=== PATIENT | female | born 1950 | race American Indian/Alaskan Native ===

== ENCOUNTER 2016-12-10 22:37 | Emergency (ER) | payer MEDICARE ==
[2016-12-10] MEDS ORDERED: UNASYN/NS 3 GM/100 ML 3 GM/100 ML BAG IV ONE (23:21)
--- NOTE | 2016-12-10 23:22 | Emergency Department Report ---
<CHENG MCKEE I. - Last Filed: 12/10/16 23:43> ED ENT HPI - General Chief complaint: Dental/Oral Stated complaint: FACIAL SWELLING/PAIN/BRUISING Time Seen by Provider: 12/10/16 23:21 Source: patient, family Mode of arrival: Wheelchair Limitations: No Limitations - History of Present Illness Initial comments: Patient is a 66-year-old female with no past medical history presenting with left facial pain and swelling status post a dental procedure 4 days prior. Associated chills today. Patient reports she woke up today with some minor swelling but over the course of the day the swelling has increased with pain tenderness and mild redness along the left side of her face. As per the daughter at the bedside 4 days ago patient had molding done of her gums 4 implants and there was complication the molding and they had to scrape the molding off. She likely had gingival trauma status post molding. Otherwise no fevers, nausea, vomiting, shortness of breath, neck pain, chest pain, abdominal pain, sick contacts. MD complaint: tooth pain, other (Left sided facial pain and swelling) -: Gradual (over today) Severity: moderate Severity scale (0 -10): 8 Quality: aching, constant Consistency: constant Improves with: none Worsens with: movement Context- Dental: history of dental caries, trauma, poor dental care - Related Data Home Medications Medication Instructions Recorded Confirmed Last Taken oxyCODONE /ACETAMINOPHEN [Percocet 1 tab PO BID PRN 12/11/16 12/11/16 Unknown 5/325] Previous Rx's Medication Instructions Recorded Last Taken Type Amoxicillin/K Clav Tab [Augmentin 1 tab PO Q12HR #14 tab 12/11/16 Unknown Rx 875 mg] Allergies Allergy/AdvReac Type Severity Reaction Status Date / Time No Known Allergies Allergy Unverified 12/10/16 23:18 ED Dental HPI - General Chief complaint: Dental/Oral Stated complaint: FACIAL SWELLING/PAIN/BRUISING Time Seen by Provider: 12/10/16 23:21 Source: patient, family Mode of arrival: Wheelchair Limitations: No Limitations - History of Present Illness MD complaint: tooth pain, other (left sided facial swelling and pain) Severity: moderate Quality: aching, constant - Related Data Home Medications Medication Instructions Recorded Confirmed Last Taken oxyCODONE /ACETAMINOPHEN [Percocet 1 tab PO BID PRN 12/11/16 12/11/16 Unknown 5/325] Previous Rx's Medication Instructions Recorded Last Taken Type Amoxicillin/K Clav Tab [Augmentin 1 tab PO Q12HR #14 tab 12/11/16 Unknown Rx 875 mg] Allergies Allergy/AdvReac Type Severity Reaction Status Date / Time No Known Allergies Allergy Unverified 12/10/16 23:18 ED Review of Systems ROS: Stated complaint: FACIAL SWELLING/PAIN/BRUISING Other details as noted in HPI Comment: All other systems reviewed and negative ED Past Medical Hx - Past Medical History Previous Medical History?: No Additional medical history: spinal surgery - Surgical History Past Surgical History?: Yes Additional Surgical History: spinal surgery - Social History Smoking Status: Never Smoker Substance Use Type: None - Medications Home Medications: Home Medications Medication Instructions Recorded Confirmed Last Taken Type Amoxicillin/K Clav Tab [Augmentin 1 tab PO Q12HR #14 tab 12/11/16 Unknown Rx 875 mg] oxyCODONE /ACETAMINOPHEN [Percocet 1 tab PO BID PRN 12/11/16 12/11/16 Unknown History 5/325] ED Physical Exam - General Limitations: No Limitations General appearance: alert, in distress (mild painful distress) - Head Head exam: Present: normocephalic, other (moderate left sided facial swelling, facial tenderness, mild erythema over the L cheek) - Eye Eye exam: Present: normal appearance - ENT ENT exam: Present: mucous membranes moist, other (Mulitiple missing teeth, dental caries, mild gingival tenderness to percussion of the left upper and lower gum line. no draining abscess seen. Mild trismus) - Neck Neck exam: Present: normal inspection ED Course Vital Signs 12/10/16 12/10/16 12/10/16 23:06 23:35 23:40 Temperature 99.3 F Pulse Rate 73 Respiratory 18 Rate Blood Pressure 182/90 149/88 209/102 Blood Pressure [Left] O2 Sat by Pulse 100 100 Oximetry 12/10/16 12/11/16 12/11/16 23:50 00:04 00:08 Temperature Pulse Rate Respiratory Rate Blood Pressure 209/102 184/85 184/85 Blood Pressure [Left] O2 Sat by Pulse 98 98 97 Oximetry 12/11/16 12/11/16 12/11/16 00:10 00:12 00:20 Temperature 98.2 F Pulse Rate 78 Respiratory 14 14 Rate Blood Pressure 184/85 185/77 Blood Pressure 165/85 [Left] O2 Sat by Pulse 99 98 99 Oximetry 12/11/16 12/11/16 12/11/16 00:30 00:40 00:50 Temperature Pulse Rate Respiratory Rate Blood Pressure 175/73 149/88 163/68 Blood Pressure [Left] O2 Sat by Pulse 94 99 94 Oximetry 12/11/16 12/11/16 12/11/16 01:00 01:10 01:20 Temperature Pulse Rate Respiratory Rate Blood Pressure 164/77 164/77 182/72 Blood Pressure [Left] O2 Sat by Pulse 96 98 96 Oximetry 12/11/16 12/11/16 12/11/16 01:30 02:33 03:22 Temperature 98.5 F Pulse Rate Respiratory Rate Blood Pressure 158/71 158/71 Blood Pressure [Left] O2 Sat by Pulse 96 98 Oximetry 12/11/16 12/11/16 12/11/16 03:30 03:40 03:50 Temperature Pulse Rate Respiratory Rate Blood Pressure 188/75 158/71 177/80 Blood Pressure [Left] O2 Sat by Pulse 95 96 99 Oximetry 12/11/16 04:04 Temperature 98.5 F Pulse Rate 82 Respiratory Rate Blood Pressure Blood Pressure [Left] O2 Sat by Pulse Oximetry ED Medical Decision Making - Medical Decision Making Concern for dental abscess and cellulitis. Ordered unasyn 3gm IVPB and morphine 4mg IVP for pain control Critical care attestation.: If time is entered above; I have spent that time in minutes in the direct care of this critically ill patient, excluding procedure time. ED Disposition Clinical Impression: Facial cellulitis Disposition: DISCHARGED TO HOME OR SELFCARE Condition: Stable Additional Instructions: Next dose of antibiotics is due around 8 or 9:00 in the morning. Take your Percocet as needed for pain. Use ice as tolerated to help reduce the swelling. Please return if you have worsening redness of the face or fever or intolerance to oral intake. Drink plenty of fluids. Stay well hydrated. Prescriptions: Amoxicillin/K Clav Tab [Augmentin 875 mg] 1 tab PO Q12HR #14 tab Referrals: PRIMARY CARE, [Primary Care Provider] - 3-5 Days <ANDRZEJ RAY - Last Filed: 12/11/16 07:07> ED Course - Reevaluation(s) Reevaluation #1: 12/11/16 07:05 CT scan did demonstrate a left-sided facial edema but no abscess formation noted otherwise unremarkable CT. I did inform the patient of the findings. Lab results were reviewed as well. Patient subjectively does have moderate amount of tenderness. I did give her another dose of pain medication to help with this. I do feel that she is safe for home. I feel that there is a combination of infection as well as inflammatory component with this. I did encourage ice at home. I did also encourage her to continue with antibiotics. she is informed that she can return to the ED tomorrow if there is any concerns whatsoever. These include increased redness fever, pain, drainage. SHe will be with her daughter at home. ED Medical Decision Making - Lab Data Result diagrams: 12/10/16 23:50 12/10/16 23:50 ED Disposition Is pt being admited?: No Does the pt Need Aspirin: No Time of Disposition: 03:40
[2016-12-10] MEDS ORDERED: MORPHINE IV ONE (23:43)
[2016-12-11 00:29] LABS: Basophils % (Auto) 0.4 % (0.0-1.8); Eosinophils % (Auto) 0.6 % (0.0-4.3); Hematocrit 39.3 % (30.3-42.9); Hemoglobin 12.8 gm/dl (10.1-14.3); Mean Corpuscular HGB Conc 33 % (30-34); Mean Corpuscular Hemoglobin 28 pg (28-32); Mean Corpuscular Volume 86 fl (79-97); Platelet Count 236 K/mm3 (140-440); Red Cell Distribution Width 14.8 % (13.2-15.2); White Blood Count 15.9 K/mm3 (4.5-11.0)
[2016-12-11 00:39] LABS: Blood Urea Nitrogen 14 mg/dL (7-17); Calcium 9.6 mg/dL (8.4-10.2); Carbon Dioxide 24 mmol/L (22-30); Chloride 103.2 mmol/L (98-107); Glucose 115 mg/dL (65-100); Potassium 3.9 mmol/L (3.6-5.0); Sodium 139 mmol/L (137-145)
[2016-12-11 00:42] LABS: Anion Gap 16 mmol/L
[2016-12-11] MEDS ORDERED: NACL ONE (01:30)
--- NOTE | 2016-12-11 03:06 | Cat Scan Report ---
FINAL REPORT PROCEDURE: CT FACIAL BONES W CON TECHNIQUE: Computerized tomography of the facial bones and soft tissues with axial and coronal sections performed from the cranial aspect of the frontal sinuses to the caudal portion of the mandible without contrast material. HISTORY: facial swelling LT FACE COMPARISON: No prior studies are available for comparison. FINDINGS: Bones: No significant abnormality. Paranasal sinuses: Clear. Soft tissues: There is left facial and periorbital soft tissue swelling. There is no abscess or mass.. Other: None. IMPRESSION: There is left facial and periorbital soft tissue swelling. There is no mass or abscess. There are no bony abnormalities. The paranasal sinuses are clear.
[2016-12-11] MEDS ORDERED: TORADOL IV ONE (03:39)
[2016-12-11] MEDS ORDERED: DILAUDID IV ONE (03:39)
[2016-12-11 04:04] VITALS: BP 177/80
== END 2016-12-11 04:00 | disposition home or self-care (01) ==
LOC: ED 22:37
DX: L03.211 Cellulitis of face (principal)
CPT/HCPCS: 36415; 70487; 80048; 85025; 96361; 96374; 96375; 99284; J0295; J1170; J1885; J2270; Q9967